=== PATIENT | male | born 1995 | race Caucasian/White ===

== ENCOUNTER → 2024-05-14 10:25 | Outpatient (BNV) | payer SELFPAY | PROVIDERS: Emergency Provider Emergency Medicine; Visit Provider Radiology Diagnostic Radiology | DX: M25.572 Pain in left ankle and joints of left foot (principal); R22.42 Localized swelling, mass and lump, left lower limb | CPT/HCPCS: 73610; 73630 ==

== ENCOUNTER 2024-05-14 10:27 | Emergency (ER) | payer MEDICAID, SELFPAY ==
--- NOTE | ~2024-05-14 | XR_ITS ---
CLINICAL HISTORY: pain swelling Exam: AP, lateral, and mortise views of the left ankle. Comparison: None. Findings: Bony alignment is anatomic. No acute fracture. Ankle mortise is intact. No joint effusion. Impression: No fracture. This document has been electronically signed by: Camacho Ash MD on 05/14/2024 11:35:00
--- NOTE | ~2024-05-14 | XR_ITS ---
CLINICAL HISTORY: dorsal lateral tenderness Exam: AP, lateral, and oblique views of the left foot. Comparison: Left ankle radiographs performed earlier today. Findings: Alignment of the Lisfranc articulation is anatomic. Hammertoe deformities of the 2nd through 5th toes. No acute fracture or erosion. Joint spaces are well preserved. Impression: No acute findings. This document has been electronically signed by: Camacho Ash MD on 05/14/2024 12:45:14
[2024-05-14 10:38] VITALS: BP 149/77; PULSE 101; RESP 20; TEMP 36.1; O2SAT 96; BMI 48.3
--- NOTE | 2024-05-14 11:54 | ED_ITS ---
HPI - General Adult General Chief complaint: Extremity Problem Stated complaint: L ankle pain/swelling, no injury Time Seen by Provider: 05/14/24 11:50 Source: patient, RN notes reviewed and old records reviewed Mode of arrival: ambulatory Limitations: no limitations History of Present Illness ED Provider: [employer] [facility] narrative: Patient is a 29-year-old male presenting to the emergency department with complaint of left dorsal foot pain which began on Wednesday night. Denies fall or other trauma. States he went to work on and Wednesday. Wednesday morning the pain was causing him to limp and this morning he was not able to put any weight or pressure on his left foot. States he has had some brief intermittent left calf pain but denies calf pain currently. Denies any chest pain, shortness breath, palpitations. MD complaint: left foot pain Onset (ago): day(s) Related Data Previous Rx's ?Medication ?Instructions ?Recorded lidocaine 5 % topical patch 1 patch topical DAILY #15 ea 05/14/24 naproxen 500 mg tablet 500 mg PO BID #28 tabs 05/14/24 Allergies Allergy/AdvReac Type Severity Reaction Status Date / Time No Known Allergies Allergy Verified 05/14/24 10:41 Review of Systems Review of Systems: As per HPI Yes all other systems are reviewed and are negative Constitutional: Constitutional: Reports as per HPI [facility] Social History Social History Advance Directives: No Advance Directives Information Provided: Yes Physical Exam ED Vital Signs: Vital Signs - 24 hr 05/14/24 10:38 Temperature 96.9 F Pulse Rate 101 H Respiratory Rate 20 Blood Pressure 149/77 H Pulse Oximetry 96 Oxygen Delivery Method Room Air BMI result Body Mass Index 48.3 Vital signs have been reviewed and appear to be correct. Blood pressure elevated. Heart rate normal. Respiratory rate normal. Temperature normal. Oxygen saturation normal. Const General: cooperative, healthy appearing and no acute distress Orientation/consciousness: oriented to person, oriented to place, oriented to time and patient oriented x3 Limitations: no limitations HENMT Head: Yes normocephalic and Yes atraumatic Ears: external ears normal General nose exam: Normal external nose present Face and sinus: Yes face symmetric Mouth: oropharynx normal and moist mucous membranes Throat: Yes uvula midline Eyes Pupils: Equal, round and reactive pupils present Neck Neck: Yes normal visual inspection and Yes supple Resp Effort & Inspection: normal respiratory effort and able to speak in complete sentences Auscultation: clear to auscultation bilaterally Cardio Rate: regular rate Rhythm: regular rhythm Heart sounds: S1 normal heart sound present and S2 normal heart sound present GI Palpation (GI): Soft to palpation and nontender Auscultation: normoactive bowel sounds General: Yes no CVA tenderness Back/Spine/Pelvis Back: no CVA tenderness Skin General skin exam: elasticity normal and turgor normal Neuro General: oriented to person, oriented to place, oriented to time, patient oriented x3, moves all extremities, no focal motor deficits and CN's II-XI intact bilaterally Cranial nerves: Yes Equal, round and reactive pupils present Cognition (Neuro): normal cognition Extrem General: Yes full ROM, Yes no pedal edema and Yes no calf tenderness Left lower extremity: lower leg Details: normal to inspection and no edema; no tenderness, no localized swelling, no palpable cords and no unusual warmth, ankle Details: normal to inspection, no edema and normal ROM; no tenderness and foot Details: normal capillary refill, normal to inspection, tenderness Location: of the dorsal foot Location: laterally, toes with normal ROM, no edema and vascular exam Details: dorsalis pedis pulse present, posterior tibial pulse present and normal capillary refill; no unusual warmth and no ecchymosis Psych Mental Status: mental status grossly normal Affect: normal affect Thought process: Normal thought process present Medical Decision Making Medical Decision Making MDM Narrative: Patient is a 29-year-old male presenting to the emergency department with complaint of left dorsal foot pain which began on Wednesday night. On exam patient is awake, A+Ox3, VS WNL, afebrile, normal neurological exam without focal deficits, physical exam findings as above. Given reported symptoms and physical exam findings, initial differential includes but is not limited to strain, sprain, fracture, tendinitis. Unlikely gout. No finding concerning for cellulitis. X-rays left foot and ankle notable for no evidence of fracture. My interpretation is in agreement with the radiologist's interpretation. Patient experienced increased pain with resisted dorsiflexion and eversion, raising suspicion for tendinitis. Dennis wrap applied and patient provided with crutches and crutch teaching. Advised patient to keep foot elevated while at rest, apply ice intermittently, will send prescription for naproxen and topical lidocaine patches, advised patient he can take Tylenol in combination with this as well. Will refer to orthopedics for further evaluation and management. Return precautions discussed at bedside. Patient verbalized understanding of and agreement with plan. Differential Diagnosis Differential Diagnoses: The differential diagnosis associated with the presentation includes As per [facility] Independent Interpretation I performed an independent interpretation of an: Plain X-Ray Interpretation: X-rays left foot and ankle notable for no evidence of fracture. Radiology Impression Discussion of test interpretation with radiology: I have reviewed the radiologist's reading. Radiologist Impression: Exam: AP, lateral, and mortise views of the left ankle. Comparison: None. Findings: Bony alignment is anatomic. No acute fracture. Ankle mortise is intact. No joint effusion. Impression: No fracture. Exam: AP, lateral, and oblique views of the left foot. Comparison: Left ankle radiographs performed earlier today. Findings: Alignment of the Lisfranc articulation is anatomic. Hammertoe deformities of the 2nd through 5th toes. No acute fracture or erosion. Joint spaces are well preserved. Impression: No acute findings. External Record Review External record reviewed: Inpatient record, Office record and Outpatient record Prescription Management I considered prescription management with: Pain Medication Discharge Plan Discharge Clinical Impression: Acute pain of left foot Patient Disposition: Home, Self-Care Instructions: Crutch Instructions (ED), How to Use an Elastic Bandage (ED), Tendinitis (ED), R.I.C.E. Treatment (ED) Additional Instructions: You have been evaluated in the emergency department today for left foot pain. Your evaluation did not find evidence of medical conditions requiring emergent intervention at this time. We have provided crutches for you to use while your foot heals. Please rest, ice, and elevate your foot, and resume normal activities as tolerated. We have sent a prescription for naproxen to your pharmacy. This medication is for pain and to reduce inflammation. If necessary, you can take Tylenol every 6 hours in combination with the naproxen. Do not take any NSAIDs (ibuprofen, Motrin, Advil, Aleve) while taking the naproxen. Call the orthopedic office to schedule a follow up appointment for further evaluation and management. Please schedule an appointment for follow-up with your primary care provider this week. Return to the emergency department if you experience worsening pain, numbness, tingling, change of color in your f oot, or any other concerning symptoms. Prescriptions: New naproxen 500 mg tablet 500 mg PO BID Qty: 28 0RF lidocaine 5 % adhesive patch,medicated 1 patch topical DAILY Qty: 15 0RF Rx Instructions: leave on most painful area for up to 12 hrs Referrals: [facility] [Provider Group] - 1 week (Left dorsal foot pain (atraumatic)) Stand Alone Forms: Work/School Release Print Language: Bulgarian
[2024-05-14 13:39] VITALS: BP 159/87; PULSE 104; RESP 16; TEMP 36.2; O2SAT 99
[2024-05-14 14:49] VITALS: BP 159/87; PULSE 104; RESP 16; TEMP 36.2; O2SAT 99
== END 2024-05-14 14:49 | disposition home or self-care (01) ==
PROVIDERS: Emergency Provider Emergency Medicine
DX: M79.672 Pain in left foot (principal)
CPT/HCPCS: 73610; 73630; 99283; 99284

== ENCOUNTER 2024-10-02 12:50 | Emergency (ER) | payer MEDICAID, SELFPAY ==
--- NOTE | ~2024-10-02 | US_ITS ---
EXAMINATION: US LOWER EXTREMITY VEINS LIMITED FOLLOW UP RIGHT HISTORY: calf pain and swelling COMPARISON: There are no prior studies available for comparison. TECHNIQUE: Duplex and color Doppler sonographic examination of the deep venous system of the right lower extremity was performed. FINDINGS: The common femoral, superficial femoral, and popliteal veins are patent demonstrating normal compressibility, spontaneous flow, and augmentation. There is a normal color and spectral Doppler waveform appearance of the visualized deep venous system above the knee. The posterior tibial and peroneal veins are patent. US/US venous duplex LE RT IMPRESSION: No evidence of acute DVT in the right lower extremity. Electronically signed by: Augie Guy MD 10/02/2024 02:23 PM EDT RP
--- NOTE | 2024-10-02 13:35 | ED_ITS ---
HPI - General Adult General Chief complaint: Extremity Injury, Lower Stated complaint: Tentinitis in foot, R calf Time Seen by Provider: 10/02/24 19:43 Source: patient Mode of arrival: ambulatory Limitations: no limitations History of Present Illness ED Provider: HPI narrative: Patient obese comes here with right calf and ankle pain for last 3 days with some swelling no history of any blood clots in the past no shortness a breath no trauma Related Data Previous Rx's ?Medication ?Instructions ?Recorded lidocaine 5 % topical patch 1 patch topical DAILY #15 ea 05/14/24 naproxen 500 mg tablet 500 mg PO BID #28 tabs 05/14 cyclobenzaprine 10 mg tablet 10 mg PO Q8H #20 tabs 01/16 tramadol 50 mg tablet 50 mg PO Q6H PRN pain #20 ta bs 10/02/24 Allergies Allergy/AdvReac Type Severity Reaction Status Date / Time No Known Allergies Allergy Verified 10/02/24 13:38 Review of Systems 2 Review of Systems: Yes all other systems are reviewed and are negative [facility] Social History Social History Advance Directives: No Advance Directives Information Provided: Yes Physical Exam ED Vital Signs: Vital Signs - 24 hr 10/02/24 13:36 10/02/24 19:39 10/02/24 20:21 Temperature 98.3 F 97.5 F 97.5 F Pulse Rate 93 95 95 Respiratory Rate 18 20 20 Blood Pressure 145/80 H 120/80 120/80 Pulse Oximetry 96 96 96 Oxygen Delivery Method Room Air Room Air Room Air BMI result Body Mass Index 48.6 Appearance: Alert. Oriented X3. No acute distress. Eyes: no pallor or icterus ENT: Pharynx normal Oral Mucosa moist tympanic membrane intact no erythema, Neck: Normal inspection. Neck supple. CVS: Normal heart rate and rhythm. Pulses normal. Respiratory: No respiratory distress. Equal air entry bilateral, no wheezing/rales/rhonchi Abd: soft, not tender Skin: Skin warm and dry. Normal skin color. Normal skin turgor. Extremities: No lower extremity edema, no calf tenderness diffuse tenderness right calf area without significant swelling Neuro: Oriented X 3. Course Course Course Narrative: This is a rapid medical exam performed by Kiara Candelario NP: Additional HPI, ROS, PE not included below will be deferred to primary provider. Patient is a 29-year-old male presenting with complaint of right calf pain and ankle swelling since Wednesday. Denies any known traumatic injury. Plan: Labs, U/S Medications Administered Discontinued Medications Generic Name Dose Route Start Last Admin Trade Name Karrie PRN Reason Stop Dose Admin Cyclobenzaprine HCl 10 mg 10/02/24 20:02 10/02/24 20:16 Cyclobenzaprine Hcl 10 Mg Tablet PO 10/02/24 20:03 10 mg ONCE ONE Administration Tramadol HCl 50 mg 10/02/24 20:02 10/02/24 20:16 Tramadol Hcl 50 Mg Tablet PO 10/02/24 20:03 50 mg ONCE ONE Administration Medical Decision Making Lab Data MDM Lab Attestation statement: I reviewed the patient's lab results. 10/02/24 13:50 10/02/24 13:50 Labs: Lab Results 10/02/24 Range/Units 13:50 WBC 12.4 H (4.8-10.8) X10*3/uL RBC 5.16 (4.60-5.80) X10*6/uL Hgb 15.5 (14.0-18.0) g/dl Hct 45.5 (42.0-52.0) % MCV 88.2 (80.0-98.0) fL MCH 30.0 (27.0-33.0) pg MCHC 34.1 (31.0-36.0) g/dl RDW 12.5 (11.0-16.0) % Plt Count 249 (160-400) X10*3/uL MPV 10.6 (9.4-12.4) fL Immature Gran % (Auto) 0.5 H (0.0-0.4) % Neut % (Auto) 65.0 (45-73) % Lymph % (Auto) 25.2 (20-40) % Greer % (Auto) 6.3 (2-11) % Eos % (Auto) 2.7 (0-4) % Baso % (Auto) 0.3 (0-2) % Lymph # (Auto) 3.1 (1.2-4.9) X10*3/uL Greer # (Auto) 0.8 (0.1-1.2) X10*3/uL Eos # (Auto) 0.3 (0.0-0.4) X10*3/uL Baso # (Auto) 0.0 (0.0-0.2) X10*3/uL Abs Immat Gran (auto) 0.06 H (0.00-0.03) X10*3/uL Absolute Neuts (auto) 8.1 (2.0-8.3) x10*3/uL Absolute Nucleated RBC 0.000 (0.0-0.012) X10*3/uL Nucleated RBC % (auto) 0.0 (0.0-0.2) /100WBC Sodium 140 (135-145) mmol/L Potassium 4.1 (3.3-5.1) mmol/L Chloride 104 (96-108) mmol/L Carbon Dioxide 27 (22-29) mmol/L Anion Gap 13 (12-20) BUN 12 (9-16) mg/dL Creatinine 0.70 (0.5-1.4) mg/dL Estim Creat Clear Calc 245.8 Estimated GFR > 60 Random Glucose 113 (60-115) mg/dL Calcium 10.3 H (8.4-10.2) mg/dL Total Bilirubin 0.3 (0.0-1.0) mg/dL AST 30 (5-37) U/L ALT 48 H (0-40) U/L Alkaline Phosphatase 74 (39-117) U/L Total Protein 7.6 (6.5-8.0) g/dL Albumin 4.6 (3.5-5.0) g/dL Independent Interpretation I performed an independent interpretation of an: Plain X-Ray and Ultrasound Interpretation: Negative for DVT x-ray also negative Radiology Impression Discussion of test interpretation with radiology: I have reviewed the radiologist's reading. Discharge Plan Discharge Clinical Impression: Sciatica Patient Disposition: Home, Self-Care Instructions: Sciatica (ED) Additional Instructions: Your venous Doppler is negative for blood clotting your right leg Keep your right leg elevated Pain medication and muscle relaxant as prescribed Follow with your PCP if not better Prescriptions: New cyclobenzaprine 10 mg tablet 10 mg PO Q8H Qty: 20 0RF tramadol 50 mg tablet 50 mg PO Q6H PRN (Reason: pain) Qty: 20 0RF No Action naproxen 500 mg tablet 500 mg PO BID Qty: 28 0RF lidocaine 5 % adhesive patch,medicated 1 patch topical DAILY Qty: 15 0RF Rx Instructions: leave on most painful area for up to 12 hrs Stand Alone Forms: Work/School Release Interventions: ED Discharge Assessment Last Done: 10/02/24 20:21 Discharge Date/Time: 10/02/24 20:21 Print Language: Mongolian
[2024-10-02 13:36] VITALS: BP 145/80; PULSE 93; RESP 18; TEMP 36.8; O2SAT 96; BMI 48.6
[2024-10-02 13:56] LABS: MANUAL DIFF FLAG NO
[2024-10-02 13:59] LABS: Hematocrit 45.5 % (42.0-52.0); Hemoglobin 15.5 g/dl (14.0-18.0); Imm Gran Abs Auto 0.06 X10*3/uL (0.00-0.03); Imm Gran Pct Auto 0.5 % (0.0-0.4); Lymphocytes Absolute Auto 3.1 X10*3/uL (1.2-4.9); Mean Corpuscular HGB Conc 34.1 g/dl (31.0-36.0); Mean Corpuscular Hemoglobin 30.0 pg (27.0-33.0); Mean Corpuscular Volume 88.2 fL (80.0-98.0); NRBC Abs Auto 0.000 X10*3/uL (0.0-0.012); NRBC Pct Auto 0.0 /100WBC (0.0-0.2); Platelet Count 249 X10*3/uL (160-400); Red Blood Count 5.16 X10*6/uL (4.60-5.80); White Blood Count 12.4 X10*3/uL (4.8-10.8)
[2024-10-02 14:12] LABS: Alanine Aminotransferase 48 U/L (0-40); Albumin Level 4.6 g/dL (3.5-5.0); Alkaline Phosphatase 74 U/L (39-117); Anion Gap 13 (12-20); Aspartate Amino Transferase 30 U/L (5-37); Blood Urea Nitrogen 12 mg/dL (9-16); Calcium 10.3 mg/dL (8.4-10.2); Carbon Dioxide 27 mmol/L (22-29); Chloride 104 mmol/L (96-108); Creatinine Clr Calc Pharmacy 245.8; Estimated Glomerular Filt Rate > 60; Potassium 4.1 mmol/L (3.3-5.1); Sodium 140 mmol/L (135-145); Total Protein 7.6 g/dL (6.5-8.0)
[2024-10-02 19:39] VITALS: BP 120/80; PULSE 95; RESP 20; TEMP 36.4; O2SAT 96
[2024-10-02 20:21] VITALS: BP 120/80; PULSE 95; RESP 20; TEMP 36.4; O2SAT 96
== END 2024-10-02 20:21 | disposition home or self-care (01) ==
PROVIDERS: Registered Nurse Emergency; Emergency Provider Internal Medicine
DX: M79.671 Pain in right foot (principal); M25.571 Pain in right ankle and joints of right foot; M54.30 Sciatica, unspecified side; M77.8 Other enthesopathies, not elsewhere classified; E66.9 Obesity, unspecified; Z79.899 Other long term (current) drug therapy
CPT/HCPCS: 36415; 80053; 85025; 93971; 99284

== ENCOUNTER → 2024-10-02 13:37 | Outpatient (BNV) | payer MEDICAID, SELFPAY | PROVIDERS: Visit Provider Radiology Diagnostic Radiology | DX: M79.661 Pain in right lower leg (principal); R22.41 Localized swelling, mass and lump, right lower limb | CPT/HCPCS: 93971 ==

== ENCOUNTER 2025-02-04 11:37 | Emergency (ER) | payer MEDICAID, SELFPAY ==
--- OUTSIDE RECORDS SUMMARY | 2022-06-29 12:21 | XMS_ITS | Encounter Summary ---
Author Organization [facility] Address [address] [place] [id number] Phone Care Team Providers Care Fruit Preserver Name Role Phone Pcp, Unknown Primary Care Provider Unavailabl e Encounter Details Date Type Department Care Team (Late st Contact Info) Description 06/29/2022 1:21 PM EDT Hospital Encounter [facility] [address] [place] [id number] Chantal Urrutia FNP [address] [place] [phone] [email or web address] Social History Tobacco Use Types Packs/Day Years Used Date Smoking Tobacco: Every Day Cigarettes Smokeless Tobacco: Never Education Answer Date Recorded Are you interested in more education? Not on jason e 06/29/2022 Are you concerned about learning? Not on file 06/29/2022 No 06/29/2022 No 06/29/2022 Digital Access Answer Date Recorded No 07/21/2022 No 07/21/2022 Reliable internet access at home? Not on file 07/21/2022 Device with a working camera? Not on file Sex and Gender Information Value Date Recorded Sex Assigned at Not on file Legal Sex Male 12:57 PM EDT Gender Identity Not on file Sexual Orientation Not on file documented as of this encounter Plan of Treatment Not on file documented as of this encounter Procedures Procedure Name Priority Date/Time Associated Diagnosis Comments XR FOOT 3 OR MORE VIEWS (LEFT) Urgent/patient waiting 06/29/2022 1:28 PM EDT Strain of left foot, initial encounter documented in this encounter Results * XR FOOT 3 OR MORE VIEWS (LEFT) (06/29/2022 1:28 PM EDT) Anatomical Region Laterality Modality Foot Left Computed Radiogr aphy 06/29/2022 1:46 PM EDT Impressions 06/29/2022 1:49 PM EDT No displaced fracture. Normal alignment. Normal joint spaces. Mild soft tissue swelling about the ankle with a trace effusion. Narrative 06/29/2022 1:49 PM EDT XR FOOT 3 OR MORE VIEWS (LEFT) COMPARISON: None. Procedure Note Sonia Torres MD - 06/29/2022 XR FOOT 3 OR MORE VIEWS (LEFT) COMPARISON: None. IMPRESSION: No displaced fracture. Normal alignment. Normal joint spaces. Mild softtissue swelling about the ankle with a trace effusion. us Chantal Urrutia [employer] DEVELOPER IMG XR LOWER EXTREMITY Winter l Result documented in this encounter Visit Diagnoses Not on filedocumented in this encounter Care Teams Fruit Preserver Relationship Specialty Start Date End Date Pcp, Unknown PCP - General 06/29/22 documented as of this encounter Additional Source Comments The information contained in this document represents components of the legal health record. It is not the complete legal health record.[facility]
--- NOTE | ~2025-02-04 | XR_ITS ---
CLINICAL HISTORY: left chest pain 2 view chest x-ray. Comparison: None Findings: No consolidation or effusion. Cardiac and mediastinal contours are unremarkable. Bones unremarkable. Impression: 1. No acute pulmonary disease. This document has been electronically signed by: Ben Catalan MD on 02/04/2025 12:58:04
--- NOTE | 2025-02-04 11:38 | ECG_ITS ---
Test Reason : chest pain Blood Pressure : */* mmHG Vent. Rate : 98 BPM Atrial Rate : 98 BPM P-R Int : 184 ms QRS Dur : 86 ms QT Int : 330 ms P-R-T Axes : 40 30 12 degrees QTcB Int : 421 ms Normal sinus rhythm Normal ECG No previous ECGs available Referred By: Generic ED Physician Electronically Signed By: Marco Antonio Pulido
[2025-02-04 11:50] VITALS: BP 144/80; PULSE 95; RESP 20; TEMP 36.1; O2SAT 94; BMI 49.5
--- NOTE | 2025-02-04 11:50 | ED_ITS ---
HPI - Chest Pain General Chief Complaint: Chest Pain Stated Complaint: chest pain Related Data Previous Rx's ?Medication ?Instructions ?Recorded lidocaine 5 % topical patch 1 patch topical DAILY #15 ea 05/14/24 naproxen 500 mg tablet 500 mg PO BID #28 tabs 05/14 cyclobenzaprine 10 mg tablet 10 mg PO Q8H #20 tabs 01/16 tramadol 50 mg tablet 50 mg PO Q6H PRN pain #20 ta bs 10/02/24 Allergies Allergy/AdvReac Type Severity Reaction Status Date / Time No Known Allergies Allergy Verified 02/04/25 11:54 [facility] Social History Social History Advance Directives: No Advance Directives Information Provided: No Physical Exam Vital Signs: Vital Signs: Last Vital Signs Temp 96.9 F 02/04/25 11:50 Pulse 95 02/04/25 11:50 Resp 20 02/04/25 11:50 BP 144/80 H 02/04/25 11:50 Pulse Ox 94 02/04/25 11:50 O2 Del Method Room Air 02/04/25 11:50 BMI result Body Mass Index 49.5 Course Course Course Narrative: This is a Rapid Medical Examination (RME) performed by Clarisse Puckett PA-C in triage. Full HPI, ROS, assessment and treatment plan per primary provider in the Main ED. Hx: 29 yo M here for eval of left sided chest pain that began while driving home from in-laws house approx 30 mins ago. reports difficulty and pain with taking a deep breath. no cardiac hx Plan: labs, ekg, cxr Patient left the emergency department before myself or any of the other clinicians could review or explain physical exam findings, test results, need or lack there of for additional testing, treatment options, or a treatment plan. Discharge Plan Discharge Clinical Impression: Chest pain Patient Disposition: Left W/O Completing Treatment Prescriptions: No Action naproxen 500 mg tablet 500 mg PO BID Qty: 28 0RF lidocaine 5 % adhesive patch,medicated 1 patch topical DAILY Qty: 15 0RF Rx Instructions: leave on most painful area for up to 12 hrs cyclobenzaprine 10 mg tablet 10 mg PO Q8H Qty: 20 0RF tramadol 50 mg tablet 50 mg PO Q6H PRN (Reason: pain) Qty: 20 0RF Discharge Date/Time: 02/04/25 12:23
--- OUTSIDE RECORDS SUMMARY | 2025-02-04 12:19 | XMS_ITS | Clinical Summary ---
Author Organization [facility] Address [address] [place], [place] [id number] Phone Care Team Providers Care World Language Teacher Name Role Phone Pcp, Unknown Primary Care Provider Unavailabl e Allergies No known active allergies Medications ibuprofen (ADVIL,MOTRIN) 800 MG tablet Take 1 tablet (800 mg total) by mouth 3 (three) times a day for 3 days. then tid prn. 30 tablet 06/29/2022 Active Active Problems No known active problems Social History Tobacco Use Types Packs/Day Years Used Date Smoking Tobacco: Every Day Cigarettes Smokeless Tobacco: Never Tobacco Cessation:Ready to Q uit: Not Asked; Counseling Given: Not Answered Education Answer Date Recorded Are you interested [...] on file Sexual Orientation Not on file Last Filed Vital Signs Vital Sign Reading Time Taken Comments Blood Pressure 153/91 06/29/2022 1:13 PM EDT Pulse 74 06/29/2022 1:13 PM EDT Temperature 36.4 C (97.6 F) 06/29/2022 1:13 PM EDT Respiratory Rate 18 06/29/2022 1:13 PM EDT Oxygen Saturation 100% 06/29/2022 1:13 PM EDT Inhaled Oxygen Concentration - - Weight 127 kg (280 lb) 06/29/2022 1:13 PM EDT Height 185.4 cm (6' 1 ) 06/29/2022 1:13 PM EDT Body Mass Index 36.94 06/29/2022 1:13 PM EDT Plan of Treatment Health Maintenance Due Date Last Done Comments Adult Td,Tdap Booster 1995 DEPRESSION SCREENING 2007 SMOKING Hx and SMOKELESS TOB ACCO SCREENING 2008 HEPATITIS C SCREENING 2013 HIV ONE-TIME SCREENING (18-6 5 YEARS) 2013 PNEUMOCOCCAL VACCINES (0-49 years) (1 of 2 - PCV) 2014 INFLUENZA VACCINE (#1) 2024 COVID-19 VACCINE (1 - 2024-2 6 season) 2024 HEPATITIS A VACCINES Aged Out No long er eligible based on patient's age to complete this topic HIB VACCINES Aged Out No longer eligi ble based on patient's age to complete this topic MENINGOCOCCAL VACCINES (ACWY) Aged Out No longer eligible based on patient's age to complete this topic MENINGOCOCCAL VACCINES (B) Aged Out N o longer eligible based on patient's age to complete this topic Medical Devices Not on file Care Teams World Language Teacher Relationship Specialty Start Date End Date Pcp, Unknown PCP - General 06/29/22 Additional Source Comments The information contained in this document represents components of the legal health record. It is not the complete legal health record.[facility]
== END 2025-02-04 12:23 | disposition left against medical advice (07) ==
PROVIDERS: Emergency Provider Emergency Medicine
DX: R07.9 Chest pain, unspecified (principal); Z53.29 Procedure and treatment not carried out because of patient's decision for other reasons
CPT/HCPCS: 71046; 93005; 99283

== ENCOUNTER → 2025-02-04 11:38 | Outpatient (BNV) | payer MEDICAID, SELFPAY | PROVIDERS: Emergency Provider Emergency Medicine; Visit Provider Internal Medicine Cardiovascular Disease | DX: R07.9 Chest pain, unspecified (principal) | CPT/HCPCS: 93010 ==

== ENCOUNTER → 2025-02-04 11:50 | Outpatient (BNV) | payer MEDICAID, SELFPAY | PROVIDERS: Emergency Provider Emergency Medicine; Visit Provider Radiology Diagnostic Radiology | DX: R07.89 Other chest pain (principal) | CPT/HCPCS: 71046 ==